=== PATIENT | female | born 1990 | race African-American/Black ===

== ENCOUNTER 2019-12-17 03:02 | Emergency (ER) | payer MEDICAID ==
[~2019-12-17] VITALS: Ht 170.2 cm; Wt 97.5 kg
[2019-12-17] MEDS ORDERED: cefTRIAXone SOD 1,000 MG VL IM ONE (06:00)
[2019-12-17] MEDS ORDERED: KETOROLAC TROMETH 60MG/2ML VIAL IM ONE (06:00)
[2019-12-17 06:08] VITALS: BP 139/81
== END 2019-12-17 06:54 | disposition home or self-care (01) ==
LOC: ER 03:05
DX: H66.92 Otitis media, unspecified, left ear (principal); H60.92 Unspecified otitis externa, left ear
CPT/HCPCS: 96372; 99284; J0696; J1885

== ENCOUNTER 2022-02-11 10:10 | Emergency (ER) | payer OTHER, MEDICAID ==
[~2022-02-11] VITALS: Ht 170.2 cm; Wt 104.5 kg
[2022-02-11 10:24] VITALS: BP 136/73
[2022-02-11 10:55] LABS: Basophils # (auto) 0.1 10 ^3/uL (0-0.2); Basophils % (auto) 0.8 % (0.0-2.0); Eosinophils # (auto) 0.2 10 ^3/uL (0-0.8); Eosinophils % (auto) 2.5 % (0.0-7.0); Hematocrit 39.3 % (36.0-46.0); Hemoglobin 12.7 g/dL (12.2-16.2); Lymphocytes # (auto) 1.7 10 ^3/uL (0.4-5.4); Lymphocytes % (auto) 19.9 % (10.0-50.0); Mean Corpuscular Hemoglobin 32.2 pg (28.0-32.0); Mean Corpuscular Hgb Conc. 32.4 g/dL (32.0-36.0); Mean Corpuscular Volume 99.5 fL (80.0-100.0); Monocytes # (auto) 0.7 10 ^3/uL (0-1.3); Monocytes % (auto) 8.6 % (0.0-12.0); Neutrophils # (auto) 5.8 10 ^3/uL (1.6-8.6); Neutrophils % (auto) 68.2 % (37.0-80.0); Red Blood Cells 3.95 10^6/uL (4.0-5.20); Red Cell Distribution Width 13.5 % (11.8-14.3); White Blood Cell 8.5 10^3/uL (4.4-10.8)
[2022-02-11 11:18] LABS: Urine Bacteria NONE SEEN /hpf (None Seen); Urine Blood Negative /uL (Negative); Urine Mucus FEW (None Seen); Urine Specific Gravity 1.025 (1.001-1.035); Urine WBC <1 /hpf (0 - 5)
[2022-02-11 11:19] LABS: Albumin 3.9 g/dL (3.4-5.0); Calcium 9.1 mg/dL (8.5-10.1); Potassium 3.9 mmol/L (3.5-5.1)
[2022-02-11 11:23] LABS: BUN/Creatinine Ratio 15.9; Bilirubin, Total 1.3 mg/dL (0.2-1.0); Total Protein 7.1 g/dL (6.4-8.2)
[2022-02-11] MEDS ORDERED: KETOROLAC TROMETH 60MG/2ML VIAL IM ONE (14:45)
[2022-02-11] MEDS ORDERED: IBU600T PO (15:23)
== END 2022-02-11 15:10 | disposition home or self-care (01) ==
LOC: ER 10:10
DX: S83.92XA Sprain of unspecified site of left knee, initial encounter (principal); R10.31 Right lower quadrant pain; Z90.89 Acquired absence of other organs; X50.1XXA Overexertion from prolonged static or awkward postures, initial encounter; Y93.89 Activity, other specified; Y92.89 Other specified places as the place of occurrence of the external cause; Y99.8 Other external cause status
CPT/HCPCS: 36415; 73562; 74176; 80053; 81001; 82150; 83690; 84484; 84702; 85025; 96372; 99285; J1885